=== PATIENT | female | born 1985 | race Caucasian/White ===

== ENCOUNTER 2024-01-23 09:08 | Emergency (ER) | payer MEDICAID ==
[~2024-01-23] VITALS: Ht 167.6 cm; Wt 104.9 kg
[~2024-01-23 09:08] MED LIST: AMPI500C11 PO; BENZ9GEL MM; CARV-49 PO; CARV6.253 PO; CLIN-97 PO; COR3.125T PO; FURO-150 PO; LISI-222 PO; LISI10TA PO; LISI20TA28 PO; NAPR-996 PO; ZES10T PO
[2024-01-23 09:14] VITALS: BP 143/64; PULSE 103; TEMP 98.7; O2SAT 98
[2024-01-23 11:52] VITALS: RESP 18
== END 2024-01-23 11:53 | disposition left against medical advice (07) ==
LOC: ER 09:09
DX: M54.50 Low back pain, unspecified (principal); M79.604 Pain in right leg; Z53.21 Procedure and treatment not carried out due to patient leaving prior to being seen by health care provider

== ENCOUNTER → 2024-02-10 | Outpatient (CLI) | payer MEDICAID ==
[~2024-02-10] VITALS: Ht 167.6 cm; Wt 103.4 kg
[2024-02-10] MEDS: albuterol 2.5 MG/3 ML nebule NEB ONE (09:32)
[2024-02-10 09:36] VITALS: PULSE 62; RESP 16; O2SAT 97
[2024-02-10 09:47] VITALS: PULSE 72; RESP 18
== END | disposition home or self-care (01) ==
LOC: RT 09:03
PROVIDERS: ATTEND Student in an Organized Health Care Education/Training Program
DX: M47.816 Spondylosis without myelopathy or radiculopathy, lumbar region (principal); M48.061 Spinal stenosis, lumbar region without neurogenic claudication; R06.02 Shortness of breath
CPT/HCPCS: 72110; 94060; 94729; 94760

== ENCOUNTER 2024-04-18 14:21 | Outpatient (CLI) | payer MEDICAID | END 2024-04-18 23:59 | disposition home or self-care (01) | LOC: RAD 14:21 | PROVIDERS: ATTEND Physician Assistant | DX: I49.8 Other specified cardiac arrhythmias (principal); F11.20 Opioid dependence, uncomplicated | CPT/HCPCS: 93005 ==